=== PATIENT | male | born 1970 | race Caucasian/White ===

== ENCOUNTER → 2018-05-24 12:23 | Outpatient (CLI) | payer OTHER, SELFPAY ==
--- NOTE | 2018-05-24 | DI.MRI.S_ITS ---
PROCEDURE: MR LUMBAR SPINE WO/W CON INDICATIONS: LOW BACK PAIN TECHNIQUE: Noncontrast sagittal T1 spin echo and T2 fast spin echo, sagittal STIR, axial T1 and T2 fast spin echo through the lumbar spine. In cases with scoliosis, additional coronal T2 fast spin echo may be performed. After the administration of contrast, sagittal and axial T1 spin echo with fat saturation through the lumbar spine. COMPARISON: [facility], CR, XR LUMBAR SPINE 2 OR 3 VIEWS, 01/04/2018, 14:43. [facility], CR, XR LUMBAR SPINE 2 OR 3 VIEWS, 09/09/2017, 10:05. [facility], CR, XR LUMBAR SPINE 2 OR 3 VIEWS, 07/15/2017, 10:28. [facility], CR, L-SPINE 2-3 VIEWS, 05/31/2017, 11:28. FINDINGS: Image quality: Excellent. Alignment and curvature: Posterior fusion is present at L5-S1. There is trace retrolisthesis of L3 on L4, L4 on L5. Marrow: Marrow is of normal overall signal. Mild to moderate reactive endplate changes are present at L5-S1. Schmorl's nodes with mild reactive change are noted along the inferior endplates of L2, L3 and superior endplate of L4. No acute vertebral body compression fractures. No suspicious marrow enhancement. Spinal cord: Conus medullaris terminates at the L1-L2 level. Visualized spinal cord demonstrates normal signal, without suspicious enhancement. Paraspinous soft tissues: No paravertebral masses or abnormal enhancement. Discs: Mild to moderate desiccation is present throughout the lumbar spine. L1-L2: No disc bulge, with minimal spinal stenosis and no foraminal narrowing. Mild epidural lipomatosis and facet/ligamentum flavum hypertrophy. L2-L3: Mild disc bulge with mild to moderate spinal stenosis. Mild epidural lipomatosis is present. No foraminal narrowing. L3-L4: Mild disc bulge with severe spinal stenosis. Prominent epidural lipomatosis is present. Minimal bilateral foraminal narrowing with facet and ligamentum flavum hypertrophy. L4-L5: Mild disc bulge with severe spinal stenosis. Prominent epidural lipomatosis is present. Facet and ligamentum flavum hypertrophy are noted. No foraminal narrowing. L5-S1: Postsurgical changes are present without spinal stenosis. Mild left foraminal narrowing. There is a focus of hypoattenuation at the right lateral recess. Significant susceptibility artifact is present within this region on postcontrast images. IMPRESSION: 1. Prominent multilevel spinal stenosis predominantly secondary to prominent epidural lipomatosis. 2. L5-S1 postsurgical changes are present. Focus of hypoattenuation is present the right lateral recess at L5-S1. There is significant susceptibility artifact present on post contrast images within this region. Despite artifact, there does appear to be portions within this region which are nonenhancing raising concern of recurrent disc versus scar tissue. Dictated by: Yas Kennedy M.D. on 05/24/2018 at 16:26 Approved by: Yas Kennedy M.D. on 05/24/2018 at 16:35
== END ==
PROVIDERS: Visit Provider Hospitalist
DX: M54.5 Low back pain (principal); M48.061 Spinal stenosis, lumbar region without neurogenic claudication; E88.2 Lipomatosis, not elsewhere classified; Z98.1 Arthrodesis status
CPT/HCPCS: 72158; A9579

== ENCOUNTER → 2018-06-20 12:27 | Outpatient (CLI) | payer OTHER, SELFPAY ==
--- NOTE | 2018-06-20 | DI.CT.S_ITS ---
PROCEDURE: CT LUMBAR SPINE WO CON INDICATIONS: LOW BACK PAIN TECHNIQUE: Noncontrast 3 mm thick sections acquired from the T12 level to the sacrum. Sagittal and coronal reformats were constructed. For radiation dose reduction, the following was used: automated exposure control. In this patient, 3-D reformatted images were also performed. COMPARISON: [facility], MR, MR LUMBAR SPINE WO/W CON, 05/24/2018, 13:05. FINDINGS: Image quality: Excellent. Bones: No acute vertebral body compression fractures. No suspicious lytic or blastic bony lesions. No pars defects. Mild levoconvex scoliotic curvature is noted. No focal AP alignment abnormality is seen. T12-L1: Unremarkable. L1-L2: Level within normal limits. L2-L3: Moderate loss of disc height is seen posteriorly. Moderate disc bulge is seen, which is eccentric to the left. There is mild left-sided neural foraminal narrowing. No right-sided neural foraminal narrowing. Moderate central canal narrowing is seen. L3-L4: The disc height is well-preserved. Moderate disc bulge is seen, with a central disc osteophyte protrusion. There is moderate right-sided and mild to moderate left-sided neural foraminal narrowing seen. Moderate to severe central canal narrowing is seen. L4-L5: The disc height is well-preserved. Moderate disc bulge is seen, which is eccentric to the left. Mild bilateral neural foraminal narrowing is seen. [id number] bilateral neural foraminal narrowing is seen. Moderate to severe central canal narrowing is seen. L5-S1: Postoperative changes are seen at this level, with bilateral pedicle screws and vertical fixation rods. The screws appear well placed. There is a disc spacer seen. No findings of hardware failure or hardware loosening are seen. There is streak artifact associated with the metallic hardware. Mild bilateral neural foraminal narrowing is seen. Endplate irregularity is seen, including posteriorly directed endplate osteophytes on the right. Moderate central canal narrowing is seen. Soft tissues: No retroperitoneal masses or hematomas. Visualized aorta is normal in caliber. IMPRESSION: Posteriorly directed endplate osteophytes can be seen on the right at L5-S1, with associated moderate central canal narrowing. Unremarkable L5-S1 postoperative change. No significant change compared to the recent prior MRI. Dictated by: Alban Alvarez M.D. on 06/20/2018 at 12:09 Approved by: Alban Alvarez M.D. on 06/20/2018 at 12:16
== END ==
PROVIDERS: PCP Orthopaedic Surgery; Visit Provider Orthopaedic Surgery
DX: M54.5 Low back pain (principal); M25.78 Osteophyte, vertebrae
CPT/HCPCS: 72131

== ENCOUNTER → 2018-06-28 17:26 | Outpatient (CLI) | payer OTHER, SELFPAY ==
--- NOTE | 2018-06-28 | DI.MRI.S_ITS ---
PROCEDURE: MR CERVICAL SPINE WO CON INDICATIONS: SPINAL STENOSIS TECHNIQUE: Noncontrast sagittal T1 spin echo and T2 fast spin echo, sagittal STIR, foraminal oblique sagittal T2 fast spin echo, and axial gradient echo or T2 fast spin echo through the cervical spine. COMPARISON: None. FINDINGS: Image quality: Excellent. Alignment and Curvature: There is normal bony alignment. Bone Marrow: Marrow demonstrates normal overall signal. There is mild reactive signal within the endplates adjacent to the C4-C5, C5-C6, and C6-C7 intervertebral discs. Spinal Cord: Visualized spinal cord has normal size and signal. No cerebellar tonsillar herniation. Paraspinous Soft Tissues: No paravertebral masses. Prevertebral soft tissues are normal in thickness. C2-C3: Normal appearance. C3-C4: Mild facet and uncovertebral hypertrophy bilaterally. Mild right greater than left foraminal stenosis. No canal stenosis. C4-C5: Mild disc desiccation and diffuse disc bulge. Mild facet and uncovertebral hypertrophy bilaterally. Mild canal stenosis. Mild bilateral foraminal stenosis. C5-C6: Mild disc height loss and desiccation. Mild diffuse disc bulge/osteophyte. Mild facet and uncovertebral hypertrophy bilaterally. Severe canal stenosis. Mild cord flattening. Moderate left and severe right foraminal stenosis. Flattening of the right C6 nerve root. C6-C7: Mild disc desiccation and diffuse disc bulge with superimposed small right paracentral protrusion. Mild facet and uncovertebral hypertrophy bilaterally. Mild canal stenosis. Mild bilateral foraminal stenosis. C7-T1: Normal appearance. IMPRESSION: 1. Multilevel degenerative disc and facet disease, as well as uncovertebral hypertrophy. 2. Multilevel canal stenoses, worst at C5-C6, where there is mild cord flattening. 3. Multilevel foraminal stenoses, worst on the right at C5-C6, where there is associated intraforaminal nerve root flattening as described above.Recommend correlation with clinical symptoms to ascertain relevance of this finding. Dictated by: Leatha Mcgowan M.D. on 06/29/2018 at 9:29 Approved by: Leatha Mcgowan M.D. on 06/29/2018 at 9:32
== END ==
PROVIDERS: Family Provider Orthopaedic Surgery; PCP Orthopaedic Surgery; Visit Provider Orthopaedic Surgery
DX: M48.00 Spinal stenosis, site unspecified (principal); G31.89 Other specified degenerative diseases of nervous system
CPT/HCPCS: 72141

== ENCOUNTER → 2022-06-23 15:09 | Outpatient (CLI) | payer OTHER, SELFPAY ==
--- NOTE | 2022-06-23 15:12 | DI.MRI.S_ITS ---
PROCEDURE: MR LUMBAR SPINE WO CON INDICATIONS: Radiculopathy, lumbar region TECHNIQUE: Noncontrast sagittal T1 spin echo and T2 fast echo, sagittal STIR, and T2 fast spin echo through the lumbar spine. In cases with scoliosis, additional coronal T2 fast spin echo may be performed. COMPARISON: None. FINDINGS: Image quality: Excellent. Alignment and Curvature: There is normal bony alignment. Bone Marrow: Marrow is of normal overall signal. No acute vertebral body compression fractures. Spinal Cord: Conus medullaris terminates at the L1 level. Visualized cord demonstrates normal signal and size. Paraspinous Soft Tissues: No paravertebral masses. T12-L1: Normal appearance. L1-L2: Normal appearance. L2-L3: Disc desiccation. Broad-based disc bulge with ligamentum flavum hypertrophy, epidural fat hypertrophy and mild facet arthrosis results in moderate to severe spinal canal narrowing. L3-L4: Disc desiccation. Broad-based disc bulge with ligamentum flavum hypertrophy and mild facet arthrosis results in moderate to severe spinal canal narrowing. L4-L5: Disc desiccation. Broad-based disc bulge, ligamentum flavum hypertrophy, epidural fat hypertrophy and moderate facet arthrosis results in moderate to severe spinal canal narrowing. L5-S1: Posterior and interbody surgical fusion. No significant spinal canal narrowing. IMPRESSION: Multilevel degenerative disc disease, facet arthrosis, ligamentum flavum hypertrophy and epidural fat hypertrophy results in moderate to severe spinal canal narrowing at L2 through L5. Dictated by: Tor Florez M.D. on 06/23/2022 at 16:40 Approved by: Tor Florez M.D. on 06/23/2022 at 16:44
== END ==
PROVIDERS: Family Provider Orthopaedic Surgery; PCP Family Medicine; Referring Provider Family Medicine; Visit Provider Family Medicine
DX: M51.16 Intervertebral disc disorders with radiculopathy, lumbar region (principal); M47.26 Other spondylosis with radiculopathy, lumbar region; M48.061 Spinal stenosis, lumbar region without neurogenic claudication; Z98.1 Arthrodesis status
CPT/HCPCS: 72148

== ENCOUNTER 2024-10-05 09:48 | Emergency (ER) | payer OTHER, SELFPAY ==
[2024-10-05 10:05] VITALS: BP 150/96; PULSE 59; RESP 16; TEMP 36.8; O2SAT 97; BMI 41.7
--- NOTE | 2024-10-05 10:12 | DI.RAD.S_ITS ---
PROCEDURE: XR KNEE LT 3V INDICATIONS: effusion TECHNIQUE: 3 views of the knee were acquired. COMPARISON: None. FINDINGS: Bones: No fractures or dislocations. No suspicious bony lesions. Soft tissues: Trace joint effusion. No suspicious soft tissue calcifications. Question remote infrapatellar tendon injury with heterotopic ossification noted. IMPRESSION: No acute bony abnormality or significant effusion. Dictated by: Roger Springer M.D. on 10/05/2024 at 10:44 Approved by: Roger Springer M.D. on 10/05/2024 at 10:45
--- NOTE | 2024-10-05 12:31 | ED.EXTPRO ---
HPI - Extremity Problem General Chief complaint: Extremity Problem,Nontraumatic Stated complaint: Lt knee pain Time Seen by Provider: 10/05/24 10:04 Source: patient Mode of arrival: Ambulatory History of Present Illness HPI Narrative: 54-year-old gentleman no significant medical history with a BMI of 42 comes in complaining of left knee pain that has been present for approximately 3 week getting worse now difficult to walk on. No specific trauma identified. He does not have any significant diagnoses of arthritis. He has never had issues with his knees previously Related Data Previous Rx's ?Medication ?Instructions ?Recorded acetaminophen 325 mg tablet 325 mg PO Q4HP PRN ##30 06/01/17 hydroxyzine pamoate 25 mg capsule 1 cap PO Q6HP PRN #50 caps 06/01/17 (Vistaril) ondansetron HCl 4 mg tablet 4 mg PO Q6HP PRN #15 tabs 06/01/17 (Zofran) oxycodone 5 mg tablet 1 - 2 tab PO Q4-6HP PRN #40 tabs 06/01/17 Allergies Allergy/AdvReac Type Severity Reaction Status Date / Time No Known Allergies Allergy Uncoded 06/23/17 12:51 Review of Systems Review of Systems Narrative: Pertinent positive and negative findings as per HPI Patient History Social History Smoking Status: Never smoker Smoking Status: Never smoker Exam Initial Vital Signs Initial Vital Signs: Vital Signs Temperature 98.3 F 10/05/24 10:05 Pulse Rate 59 L 10/05/24 10:05 Respiratory Rate 16 10/05/24 10:05 Blood Pressure 150/96 H 10/05/24 10:05 Pulse Oximetry 97 10/05/24 10:05 Oxygen Delivery Method Room Air 10/05/24 10:05 General: Alert appropriate in no acute distress Respiratory: Able to speak in full sentences, no obvious respiratory distress Skin: No obvious rashes, warm and dry Neurologic: Grossly intact no obvious asymmetries or abnormalities Psych: appropriate insight and affect, cooperative Extremity: Left knee with mild effusion, no warmth or redness. Tenderness with full extension and full flexion but does have full range of motion. Tender with pressure in the medial aspect of the meniscus but no obvious ligamentous injuries. Neurovascularly intact distally Course Orders Ordered: ED Orders 10/05/24 10:12 XR knee LT 3V Stat Vital Signs Vital signs: Vital Signs - 8 hr 10/05/24 10:05 Temperature 98.3 F Pulse Rate 59 L Respiratory Rate 16 Blood Pressure 150/96 H Pulse Oximetry 97 Oxygen Delivery Method Room Air MDM - Extremity (Nontraumatic) MDM Narrative Medical decision making narrative: 54-year-old gentleman comes in with 3 weeks of increasing left knee pain. There is no suggestion of septic joint, no obvious trauma recalled. X-ray of the knee does not show significant abnormalities and specifically no significant arthritis. Given his physical exam I suspect this maybe a meniscal injury in the next step in his workup we will be MRI. Share those findings with him. He has been taking 800 mg of ibuprofen 3 times a day and we discussed changing that to 400 of ibuprofen with Tylenol. He is placed in a knee immobilizer and is neurovascularly intact pre and post placement. He will contact his primary care physician to discuss further follow up including probable MRI. He is safe for discharge Discharge Plan Departure Patient Disposition: Home Clinical Impression: Effusion of knee joint, left Instructions: DI for Meniscal Tear, DI for Knee Pain Activity Restrictions/Additional Instructions: Thank you for coming in today Based on your physical exam and the fact that your x-ray looks quite reassuring with no evidence of arthritis I am concerned that you have a meniscal injury causing your left knee pain in the swelling. I have given you a knee immobilizer to help with both stability and see if this helps with overall pain I am also given you a copy of the radiology report from the x-ray we did today Using 400 mg of ibuprofen (2 [id number] pills) and 1 Tylenol every 6 hours can be very helpful in controlling pain. Ice particularly after he had been standing on the need for an extended period of time we will also be helpful Please do follow up with your primary care physician as we discussed. I believe the next step in your workup will in fact be an MRI of this knee Prescriptions: No Action acetaminophen 325 MG tablet 325 mg PO Q4HP PRNQty: 30 0RF oxycodone 5 MG tablet 1 - 2 tab PO Q4-6HP PRNQty: 40 0RF ondansetron HCl [Zofran] 4 MG tablet 4 mg PO Q6HP PRNQty: 15 0RF hydroxyzine pamoate [Vistaril] 25 MG capsule 1 cap PO Q6HP PRNQty: 50 0RF Referrals: Yulissa Acuna MD [Primary Care Provider, Family Practice] Stand Alone Forms: Patient Portal/API
== END 2024-10-05 12:47 | disposition home or self-care (01) ==
PROVIDERS: Emergency Provider Emergency Medicine; Family Provider Orthopaedic Surgery; PCP Family Medicine
DX: M25.462 Effusion, left knee (principal); Z68.41 Body mass index [BMI] 40.0-44.9, adult
CPT/HCPCS: 73562; 99281; 99283